=== PATIENT | female | born 1985 | race Caucasian/White ===

== ENCOUNTER 2024-09-11 09:05 | Observation (INO) | payer OTHER ==
[2024-09-11 10:15] LABS: #Basophils Less than 0.03 10x3/uL (0.0-0.2); #Eosinophils 0.15 10x3/uL (0.0-0.5); #Monocytes 0.48 10x3/uL (0.0-1.1); #Neutrophils 4.90 10x3/uL (1.5-8.4); %Basophils 0.2 % (0.0-2.0); %Eosinophils 2.3 % (0.0-6.0); %Lymphocytes 16.5 % (18.0-47.0); %Monocytes 7.2 % (0.0-10.0); %Neutrophils 73.6 % (40.0-75.0); Hematocrit 36.3 % (34.9-44.5); Hemoglobin 11.9 g/dL (12.0-15.5); Mean Corpuscular Hemoglobin 30.8 pg (27.0-33.0); Mean Corpuscular Volume 94.0 fL (81.6-98.3); Platelet Count 268 10x3/uL (150-450); Red Blood Cell (RBC) Count 3.86 10x6/uL (3.90-5.03); White Blood Cell (WBC) Count 6.65 10x3/uL (3.5-10.5)
[2024-09-11 10:39] LABS: ALT (SGPT) 42 U/L (Less than 34); AST (SGOT) 32 U/L (11-34); Albumin 3.5 g/dL (3.1-4.5); Alkaline Phosphatase 41 U/L (40-110); Anion Gap 13 mmol/L (10-20); BUN (Urea Nitrogen) 6 mg/dL (7.0-18.7); Bilirubin, Total 0.6 mg/dL (0.3-1.2); Calc. Creatinine Clearance 0 mL/min (70-130); Calcium 8.3 mg/dL (7.8-10.44); Carbon Dioxide 25 mmol/L (22-29); Chloride 104 mmol/L (98-107); Globulin 3.5 g/dL (2.4-3.5); Glucose 96 mg/dL (70-105); Lipase 45 U/L (8-78); Potassium 3.7 mmol/L (3.5-5.1); Sodium 138 mmol/L (136-145)
[2024-09-11 10:41] LABS: Troponin I Less than 0.010 ng/mL (< 0.028)
[2024-09-11 11:34] LABS: Glucose, Urine (Dipstick) Normal (Negative); Leukocyte Negative (Negative); Protein, Urine (Dipstick) 15 mg/dl (Neg-Trace); Specific Gravity, Urine 1.005 (1.005-1.030)
[2024-09-11 11:34] LABS: BHCG - Serum Negative (NEGATIVE); Pregs Control Background? CLEAR/WHITE (CLR/WHITE); Pregs Control Bar Appear? YES (CONTROL BAR)
[2024-09-11 11:46] LABS: Bacteria/HPF Rare-Few HPF (None Seen); CAUTI Indications for Culture Pelvic or flank pain; WBC/HPF 0-3 HPF (0-3)
[2024-09-11 11:47] LABS: Urine Culture Reflex No No
[2024-09-11] MEDS ORDERED: Iopamidol 300 61% 100 ML VIAL FS ONE (13:45)
[2024-09-11 18:19] VITALS: TEMP 98.3
[2024-09-11 18:22] VITALS: BMI 19.3
[2024-09-11 18:46] VITALS: BP 108/67
== END 2024-09-11 20:17 | disposition home or self-care (01) ==
LOC: CSHERS 09:05 → CSHERHOLD 14:57
PROVIDERS: ADMIT Internal Medicine; ATTEND Internal Medicine
DX: K56.609 Unspecified intestinal obstruction, unspecified as to partial versus complete obstruction (principal); D25.9 Leiomyoma of uterus, unspecified
CPT/HCPCS: 74177; 80053; 81001; 83605; 83690; 84484; 84703; 85025; 93005; G0378; Q9967

== ENCOUNTER 2024-09-13 15:00 | Emergency (ER) | payer OTHER ==
[~2024-09-13 15:00] MED LIST: Iopamidol 300 61% 100 ML VIAL FS ONE
[2024-09-13] MEDS ORDERED: Droperidol 5 MG/2 ML VIAL ONE (15:46)
[2024-09-13 16:03] LABS: #Basophils 0.04 10x3/uL (0.0-0.2); #Eosinophils 0.03 10x3/uL (0.0-0.5); #Monocytes 1.00 10x3/uL (0.0-1.1); #Neutrophils 13.80 10x3/uL (1.5-8.4); %Basophils 0.3 % (0.0-2.0); %Eosinophils 0.2 % (0.0-6.0); %Lymphocytes 5.7 % (18.0-47.0); %Monocytes 6.3 % (0.0-10.0); %Neutrophils 87.2 % (40.0-75.0); Hematocrit 42.3 % (34.9-44.5); Hemoglobin 14.4 g/dL (12.0-15.5); Mean Corpuscular Hemoglobin 31.2 pg (27.0-33.0); Mean Corpuscular Volume 91.8 fL (81.6-98.3); Platelet Count 351 10x3/uL (150-450); Red Blood Cell (RBC) Count 4.61 10x6/uL (3.90-5.03); White Blood Cell (WBC) Count 15.83 10x3/uL (3.5-10.5)
[2024-09-13 16:11] LABS: BHCG - Serum Negative (NEGATIVE); Pregs Control Background? CLEAR/WHITE (CLR/WHITE); Pregs Control Bar Appear? YES (CONTROL BAR)
[2024-09-13 16:15] LABS: INR-International Normal Ratio 1.0; PTT 24.5 sec (22.0-33.0); Prothrombin Time 11.2 sec (9.5-12.1)
[2024-09-13 16:19] LABS: ALT (SGPT) 34 U/L (Less than 34); AST (SGOT) 28 U/L (11-34); Albumin 4.2 g/dL (3.1-4.5); Alkaline Phosphatase 48 U/L (40-110); Anion Gap 18 mmol/L (10-20); BUN (Urea Nitrogen) 8 mg/dL (7.0-18.7); Bilirubin, Total 0.4 mg/dL (0.3-1.2); Calc. Creatinine Clearance 0 mL/min (70-130); Calcium 9.5 mg/dL (7.8-10.44); Carbon Dioxide 21 mmol/L (22-29); Chloride 102 mmol/L (98-107); Globulin 3.9 g/dL (2.4-3.5); Glucose 117 mg/dL (70-105); Lipase 51 U/L (8-78); Potassium 3.9 mmol/L (3.5-5.1); Sodium 137 mmol/L (136-145)
[2024-09-13 16:26] LABS: Troponin I Less than 0.010 ng/mL (< 0.028)
[2024-09-13] MEDS ORDERED: Fleet Saline Enema 133 ML BOT PR SCH (18:30)
== END 2024-09-13 18:50 | disposition home or self-care (01) ==
LOC: CSHERS 15:00
DX: K56.7 Ileus, unspecified (principal); K56.41 Fecal impaction
CPT/HCPCS: 36415; 74177; 80053; 82247; 83605; 83690; 84484; 84703; 85025; 85610; 85730; 86850; 86900; 86901; 93005; 93010; 96361; 96365; 96375; J1790; J2543